=== PATIENT | female | born 1985 | race Caucasian/White ===

== ENCOUNTER 2018-01-15 22:16 | Emergency (ER) | payer MEDICAID, OTHER ==
[~2018-01-15] VITALS: Ht 154.9 cm; Wt 78.2 kg
[~2018-01-15 22:16] MED LIST: PREN-169
[2018-01-15] MEDS ORDERED: PRED20 PO (22:33)
[2018-01-15] MEDS ORDERED: AZAT50TA35 PO (22:33)
[2018-01-15 22:48] LABS: EOSINOPHILS % (AUTO) 0.1 % (1.0-6.0); LYMPHOCYTES # (AUTO) 0.3 K/uL (1.0-4.8); MONOCYTES # (AUTO) 0.2 K/uL (0.1-1.0)
[2018-01-15 23:06] LABS: APPEARANCE,URINE CLOUDY (CLEAR); GLUCOSE, URINE (UA) 100 mg/dL (NEGATIVE); KETONES,URINE TRACE mg/dL (NEGATIVE); LEUKOCYTE ESTERASE ,URINE SMALL (NEGATIVE); NITRATE,URINE NEGATIVE (NEGATIVE); OCCULT BLOOD,URINE LARGE (NEGATIVE); PROTEIN,URINE TRACE (NEGATIVE)
[2018-01-15 23:08] LABS: BILIRUBIN,URINE PRELIM. POSITIVE (NEGATIVE)
[2018-01-15 23:11] LABS: HEMOGLOBIN 10.4 g/dL (12.0-16.0); LYMPHOCYTES % (AUTO) 4.5 % (22.0-44.0); MEAN CORPUSCULAR HEMOGLOBIN 36.3 pg (26.0-34.0); MEAN CORPUSCULAR HGB CONC 34.6 G/dL (31.0-37.0); MEAN CORPUSCULAR VOLUME 105 fL (80-100); MONOCYTES % (AUTO) 3.5 % (2.0-9.0); NEUTROPHILS # (AUTO) 5.4 K/uL (1.8-7.7); RED BLOOD CELL COUNT(AUTO) 2.85 MIL/uL (4.00-5.20); RED CELL DISTRIBUTION WIDTH 16.7 % (11.5-14.5)
[2018-01-15 23:17] LABS: NEUTROPHILS % (AUTO) 91.9 % (40.0-70.0)
[2018-01-15 23:19] LABS: BACTERIA,URINE Few /HPF (None Seen); SQUAMOUS EPITHELIAL CELL,UR Few /LPF (None Seen)
[2018-01-15 23:20] LABS: CALCIUM OXALATE CRYSTALS,UR Few /LPF (None Seen)
[2018-01-15 23:26] LABS: ANION GAP 7 mmol/L (8-16); CALCIUM, TOTAL 7.4 mg/dL (8.8-10.5); CARBON DIOXIDE 24 mmol/L (22-29); CHLORIDE 105 mmol/L (98-107); CREATININE 0.72 mg/dL (0.60-1.30); GLOMERULAR FILTR. RATE CALC > 60 mL/min (>60); GLUCOSE,RANDOM 221 mg/dL (70-110); POTASSIUM 3.6 mmol/L (3.5-5.1); SODIUM SERUM 136 mmol/L (136-145); UREA NITROGEN, BLOOD 14 mg/dL (7-18)
[2018-01-15 23:29] LABS: PLATELET COUNT (AUTO) 37 K/uL (150-450)
[2018-01-15 23:32] LABS: ALANINE AMINOTRANSFERASE 48 U/L (12-78); ALBUMIN 2.1 g/dL (3.4-5.0); ALKALINE PHOSPHATASE 100 U/L (46-116); ASPARTATE AMINOTRANSFERASE 29 U/L (15-37); LIPASE 326 U/L (73-393); TOTAL PROTEIN, SERUM 6.5 g/dL (6.4-8.2)
[2018-01-16] MEDS ORDERED: BARIUM SULFATE 0.1% SUSPENSION 450 ML BOTTLE PO ONE (01:15)
[2018-01-16] MEDS ORDERED: KETOROLAC TROMETHAMINE 30 MG/ML VIAL IVP ONE (01:15)
[2018-01-16 01:39] LABS: HEMOGLOBIN A1C 4.1 % (4.5-6.2)
[2018-01-16] MEDS ORDERED: IOVERSOL 350 MG/ML 150 ML VIAL ONE (02:21)
[2018-01-16] MEDS ORDERED: SODIUM CHLORIDE 0.9% 100 ML ONE (02:21)
[2018-01-16 05:32] VITALS: BP 124/77
== END 2018-01-16 05:58 | disposition home or self-care (01) ==
LOC: EMS 22:16
DX: R10.84 Generalized abdominal pain (principal); M35.8 Other specified systemic involvement of connective tissue; R18.8 Other ascites; D61.818 Other pancytopenia; R73.9 Hyperglycemia, unspecified; K74.60 Unspecified cirrhosis of liver; R16.1 Splenomegaly, not elsewhere classified; K76.6 Portal hypertension; N13.30 Unspecified hydronephrosis; Z88.6 Allergy status to analgesic agent; Z79.899 Other long term (current) drug therapy; Z90.49 Acquired absence of other specified parts of digestive tract; Z98.890 Other specified postprocedural states
CPT/HCPCS: 36415; 71045; 74177; 80053; 81001; 83036; 83690; 84703; 85025; 96374; 99285; J1885; J7050; Q9967; Z7610